=== PATIENT | male | born 2000 | race Caucasian/White ===

== ENCOUNTER 2021-06-04 14:56 | Emergency (ER) | payer OTHER, SELFPAY ==
[2021-06-04 15:10] VITALS: BP 136/77; PULSE 88; RESP 16; TEMP 37; O2SAT 99
--- NOTE | 2021-06-04 16:05 | ED.GIBLEED ---
HPI - GI Bleed General Chief complaint: GI Bleed Stated complaint: POOPING OUT BLOOD Time Seen by Provider: 06/04/21 15:50 Source: patient Mode of arrival: Ambulatory History of Present Illness HPI Narrative: 20M nonsmoker, previous heavy drinker presents with the chief complaint of relatively frequent episodes of painless bright red blood per rectum that have occurred over the past many months to years. He is here today because he the passage of a few small dark clots in his stool. On occasion he gets some mild cramping in his lower abdomen but not currently. He has had no fever or chills. He is not dizzy nor weak or lightheaded. He takes no blood thinners. He denies any previous evaluation for this. He does have a family history significant for Crohn's. Related Data Allergies Allergy/AdvReac Type Severity Reaction Status Date / Time No Known Drug Allergies Allergy Verified 06/04/21 15:12 Review of Systems Review of Systems Narrative: GENERAL: Denies chills, fatigue, malaise, fever, sweats. HEENT: Denies sinus pain, ear pain, sore throat, difficulty swallowing, dizziness. RESPIRATORY: Denies dyspnea, cough, wheezing, hemoptysis, sputum. CARDIOVASCULAR: Denies chest pain, palpitations, orthopnea, edema, GASTROINTESTINAL: See HPI : Denies dysuria, frequency, incontinence, hematuria, urinary retention. MUSCULOSKELETAL: denies weakness, joint pain, or bony pain SKIN: Denies rash, skin lesions, or other NEUROLOGIC: Denies weakness, headache, numbness, change in speech, confusion, seizures, incoordination. PSYCHIATRIC: No concerning psychosocial issues. 12 point review of systems is negative except for those stated above Patient History Social History Smoking Status: Never smoker Smoking Status: Never smoker Exam Narrative Exam Narrative: GENERAL: [20 year old patient appears stated age. Well-developed patient, in mild distress. HEAD: Atraumatic. Normocephalic. EYES: Pupils equal round and reactive. Extraocular motions intact. No scleral icterus. No injection or drainage. ENT: Nose without bleeding, purulent drainage. Throat without erythema, tonsillar hypertrophy or exudate. Airway patent. NECK: Trachea midline. Non tender CARDIOVASCULAR: Regular rate and rhythm without murmurs, gallops, or rubs. RESPIRATORY: Clear to auscultation. Breath sounds equal bilaterally. No wheezes, rales, or rhonchi. GASTROINTESTINAL: Abdomen soft, non-tender, nondistended. RECTAL: EXTREMITIES: No edema or joint tenderness. BACK: Nontender without deformity or crepitance. No flank tenderness. NEURO: AOx3. SKIN: No rash or erythema of visible areas Initial Vital Signs Initial Vital Signs: Vital Signs Temperature 98.6 F 06/04/21 15:10 Pulse Rate 88 06/04/21 15:10 Respiratory Rate 16 06/04/21 15:10 Blood Pressure 136/77 06/04/21 15:10 Pulse Oximetry 99 06/04/21 15:10 Course Orders Ordered: ED Orders 06/04/21 15:58 Complete Blood Count AUTO DIFF Stat Comprehensive Metabolic Panel Stat Prothrombin Time INR Stat Vital Signs Vital signs: Vital Signs - 8 hr 06/04/21 15:10 Temperature 98.6 F Pulse Rate 88 Respiratory Rate 16 Blood Pressure 136/77 Pulse Oximetry 99 MDM - GI Bleed Lab Data Result diagrams: 06/04/21 16:05 06/04/21 16:05 Labs: Lab Results 06/04/21 06/04/21 06/04/21 Range/Units 16:05 16:05 16:05 WBC 6.0 (4.5-11.0) X10^3/uL RBC 5.02 (4.5-5.9) X10^6/uL Hgb 15.2 (13.5-17.5) g/dL Hct 43.9 (41-53) % MCV 87.4 (80-100) fL MCH 30.2 (26-34) PG MCHC 34.5 (30-36) % RDW 12.3 (11.6-14.8) % Plt Count 161 (150-400) X10^3/uL Neut % (Auto) 60.4 (50-75) % Lymph % (Auto) 31.2 (25-40) % [place] % (Auto) 6.3 (3-14) % Eos % (Auto) 1.7 L (2-4) % Baso % (Auto) 0.4 (0-2) % Neut # (Auto) 3600 (5338-7106) /uL Lymph # (Auto) 1900 (3644-6388) /uL [place] # (Auto) 400 (0-900) /uL Eos # (Auto) 100 (0-450) /uL Baso # (Auto) 0 (0-100) /uL PT 12.6 (10.1-12.7) SECONDS INR 1.1 (0.9-1.3) Sodium 140 (137-145) mmol/L Potassium 4.7 (3.4-5.1) mmol/L Chloride 102 (98-107) mmol/L Carbon Dioxide 27 (22-32) mmol/L BUN 22 H (9-20) mg/dL Creatinine 0.96 (0.66-1.25) mg/dL Estimated GFR > 60.0 (>60) mL/min BUN/Creatinine Ratio 22.9 H (6-22) Glucose 72 (70-100) mg/dL Calcium 9.5 (8.4-10.2) mg/dL Total Bilirubin 0.5 (0.2-1.3) mg/dL AST 34 (17-59) IU/L ALT 27 (<50) IU/L Alkaline Phosphatase 68 (38-126) U/L Total Protein 7.7 (6.3-8.2) g/dL Albumin 4.7 (3.5-5.0) g/dL Globulin 3.0 (1.7-4.1) g/dL Albumin/Globulin Ratio 1.6 (1.0-2.8) Discharge Plan Departure Patient Disposition: Home Clinical Impression: Lower gastrointestinal hemorrhage Instructions: Gastrointestinal Bleeding Activity Restrictions/Additional Instructions: *You have been diagnosed with [lower gastrointestinal bleeding. No evidence of hemorrhoid, fissure and your labs are very reassuring today *What to do: *Please continue to take your regular medications as directed. [ ] New medication prescriptions sent to your pharmacy: [ ] [ ] New medication written as a paper prescription [x ] No new medications given *Please follow up with your primary care provider in 2-3 days, call for an appointment. Let them know you were seen in the Emergency Department and that we ask that you be seen in follow up. We will electronically transmit a record of today's note if your PCP is in our system *If you do not have a primary care provider please contact the [facility] Resource line at [phone]. They will ask some questions about your medical history and help get you set up with a doctor in the community. * additionally, I have given you contact information for [facility]. Please call for an appointment and let them know that you were seen in the emergency department and we would like you to be seen in follow-up. *Return to Emergency Department if you should have any new, worsening or concerning symptoms, such as [fever greater than 101 F, shaking chills, worsening pain, persistent vomiting or other bothersome symptoms] Referrals: Ish Kim MD [Physician] -
[2021-06-04 16:25] LABS: Add Manual Diff / Slide Review NO; Basophils Absolute Auto 0 /uL (0-100); Basophils Percent Auto 0.4 % (0-2); Eosinophils Absolute Auto 100 /uL (0-450); Eosinophils Percent Auto 1.7 % (2-4); Hematocrit 43.9 % (41-53); Hemoglobin 15.2 g/dL (13.5-17.5); Lymphocytes Absolute Auto 1900 /uL (1100-4500); Lymphocytes Percent Auto 31.2 % (25-40); Mean Corpuscular HGB Conc 34.5 % (30-36); Mean Corpuscular Hemoglobin 30.2 PG (26-34); Mean Corpuscular Volume 87.4 fL (80-100); Monocytes Absolute Auto 400 /uL (0-900); Monocytes Percent Auto 6.3 % (3-14); Neutrophils Absolute Auto 3600 /uL (1500-7000); Neutrophils Percent Auto 60.4 % (50-75); Platelet Count 161 X10^3/uL (150-400); Red Blood Cell Count 5.02 X10^6/uL (4.5-5.9); Red Cell Distribution Width 12.3 % (11.6-14.8)
[2021-06-04 16:31] LABS: INR 1.1 (0.9-1.3); Prothrombin Time 12.6 SECONDS (10.1-12.7)
[2021-06-04 16:35] LABS: Alanine Aminotransferase 27 IU/L (<50); Albumin 4.7 g/dL (3.5-5.0); Albumin Globulin Ratio 1.6 (1.0-2.8); Alkaline Phosphatase 68 U/L (38-126); Aspartate Aminotransferase 34 IU/L (17-59); BUN Creatinine Ratio 22.9 (6-22); Bilirubin Total 0.5 mg/dL (0.2-1.3); Blood Urea Nitrogen 22 mg/dL (9-20); Calcium 9.5 mg/dL (8.4-10.2); Carbon Dioxide 27 mmol/L (22-32); Chloride 102 mmol/L (98-107); Estimated Glomerular Filt Rate > 60.0 mL/min (>60); Glucose 72 mg/dL (70-100); HEMOLYSIS < 15 (0-50); Potassium 4.7 mmol/L (3.4-5.1); Sodium 140 mmol/L (137-145); Total Protein 7.7 g/dL (6.3-8.2)
== END 2021-06-04 17:53 | disposition home or self-care (01) ==
PROVIDERS: Emergency Provider Emergency Medicine
DX: K92.2 Gastrointestinal hemorrhage, unspecified (principal)
CPT/HCPCS: 36415; 80053; 85025; 85610; 99281; 99283

== ENCOUNTER 2021-08-03 23:40 | Emergency (ER) | payer OTHER, SELFPAY ==
[2021-08-03 23:45] VITALS: BP 130/62; PULSE 92; RESP 17; TEMP 36.8; O2SAT 98; BMI 25.8
--- NOTE | 2021-08-04 00:07 | ED.NAVMDI ---
HPI - Nausea/Vomiting/Diarrhea General Chief complaint: Nausea/Vomiting/Diarrhea Stated complaint: coughing/vomitting blood Time Seen by Provider: 08/04/21 00:07 Source: patient Mode of arrival: Ambulatory Limitations: no limitations History of Present Illness HPI Narrative: This is a 20-year-old male who comes to the emergency department after having episode of emesis followed by some bright red blood. Patient states he was in the shower he was feeling fine until all the sudden his stomach felt quite nauseated. He states he had ?a violent episode of vomiting that seemed to last for some time which was mostly all of the food he had eaten the last day. States at the tail end there seemed to be some bright red blood and that he sort of coughed out some blood afterwards. Patient states this was around 10:30 p.m.. 2 hours later he has not had any additional emesis, him at emesis or hemoptysis symptoms. He denies any syncope. He felt a little lightheaded while he was vomiting. Patient denies any abdominal pain. He had some abdominal pain that wrapped around while he was vomiting. It has resolved. He denies any diarrhea or constipation. He has had bright red blood from the rectum in the past and had a colonoscopy which only found an anal fissure. This was just in the last couple weeks. He denies any dysuria, urgency or frequency. He denies any epistaxis or other forms of bleeding. He has not been coughing or had any chest pain or shortness of breath and has not coughed up any blood before this episode. He has not had any clotting abnormalities or inappropriate bruising or bleeding. Denies other medical issues. No prior surgeries besides left knee surgery. No allergies to medications. Patient states he had several hard [place] is a earlier today. He did think he maybe ate something that might have caused him to be sick. Related Data Allergies Allergy/AdvReac Type Severity Reaction Status Date / Time No Known Drug Allergies Allergy Verified 06/04/21 15:12 Review of Systems Review of Systems ROS Unobtainable: All systems reviewed & are unremarkable except as noted in HPI and below Patient History Social History Smoking Status: Never smoker Smoking Status: Never smoker alcohol intake frequency: a few times a week Substance Use Type: does not use Exam Narrative Exam Narrative: GENERAL: Alert and oriented x three, thin well-appearing male in mild distress. HEENT: Head normocephalic, atraumatic, EOMI, no scleral icterus. Pupils reactive, face symmetric, moist mucous membranes NECK: Supple, full range of motion CARDIOVASCULAR: Regular rate and rhythm without murmurs, rubs or gallops. RESPIRATORY: Breath sounds equal bilaterally, no wheezes rales or rhonchi. No tachypnea or accessory muscle use. ABDOMEN: Soft, nontender. Normoactive bowel sounds all 4 quadrants. No guarding or rebound, rigidity, no mass, nondistended. : No CVA tenderness EXTREMITIES: Normal range of motion, no clubbing or edema. Neurovascularly intact NEUROLOGICAL: Cranial nerves II through XII grossly intact. Moving all extremities SKIN: Warm, dry, no petechiae, no rashes or lesions. Initial Vital Signs Initial Vital Signs: Vital Signs Temperature 98.3 F 08/03/21 23:45 Pulse Rate 92 H 08/03/21 23:45 Respiratory Rate 17 08/03/21 23:45 Blood Pressure 130/62 08/03/21 23:45 Pulse Oximetry 98 08/03/21 23:45 Course Orders Ordered: ED Orders 08/04/21 00:21 US abdomen limited Stat 08/04/21 00:31 Complete Blood Count AUTO DIFF Stat Comprehensive Metabolic Panel Stat Lipase Stat Partial Thromboplastin Time Stat Prothrombin Time INR Stat Discontinued Medications Ondansetron HCl (Ondansetron 4 Mg Odt) 4 mg SL NOW ONE Stop: 08/04/21 00:22 Last Admin: 08/04/21 00:24 Dose: 4 mg Documented by: ALRS Vital Signs Vital signs: Vital Signs - 8 hr 08/03/21 23:45 08/04/21 01:15 Temperature 98.3 F Pulse Rate 92 H 86 Respiratory Rate 17 15 Blood Pressure 130/62 117/67 Pulse Oximetry 98 99 MDM - Nausea/Vomiting/Diarrhea Lab Data Result diagrams: 08/04/21 00:31 08/04/21 00:31 Labs: Lab Results 08/04/21 08/04/21 08/04/21 Range/Units 00:31 00:31 00:31 WBC 6.1 (4.5-11.0) X10^3/uL RBC 4.71 (4.5-5.9) X10^6/uL Hgb 13.9 (13.5-17.5) g/dL Hct 40.3 L (41-53) % MCV 85.6 (80-100) fL MCH 29.5 (26-34) PG MCHC 34.5 (30-36) % RDW 12.1 (11.6-14.8) % Plt Count 158 (150-400) X10^3/uL Neut % (Auto) 61.3 (50-75) % Lymph % (Auto) 27.5 (25-40) % [place] % (Auto) 8.8 (3-14) % Eos % (Auto) 1.9 L (2-4) % Baso % (Auto) 0.5 (0-2) % Neut # (Auto) 3700 (3984-0828) /uL Lymph # (Auto) 1700 (2321-7250) /uL [place] # (Auto) 500 (0-900) /uL Eos # (Auto) 100 (0-450) /uL Baso # (Auto) 0 (0-100) /uL PT 12.0 (10.1-12.7) SECONDS INR 1.1 (0.9-1.3) APTT 18 L (26.4-36.2) SECONDS Sodium 139 (137-145) mmol/L Potassium 3.8 (3.4-5.1) mmol/L Chloride 103 (98-107) mmol/L Carbon Dioxide 26 (22-32) mmol/L BUN 16 (9-20) mg/dL Creatinine 0.82 (0.66-1.25) mg/dL Estimated GFR > 60.0 (>60) mL/min BUN/Creatinine Ratio 19.5 (6-22) Glucose 100 (70-100) mg/dL Calcium 9.3 (8.4-10.2) mg/dL Total Bilirubin 0.3 (0.2-1.3) mg/dL AST 27 (17-59) IU/L ALT 24 (<50) IU/L Alkaline Phosphatase 52 (38-126) U/L Total Protein 7.2 (6.3-8.2) g/dL Albumin 4.4 (3.5-5.0) g/dL Globulin 2.8 (1.7-4.1) g/dL Albumin/Globulin Ratio 1.6 (1.0-2.8) Lipase 77 (23-300) U/L Imaging Data US - abdomen: Radiologist's Impression: prelim-negative. Close Abdomen Ultrasound (Signed) Herbert Colmenares - 08/04/21 Launch?[address] [address] Ultrasound Report Signed Patient: Manuel Workman MR#: [id number] : 2000 Acct:[id number] Age/Sex: 20 / M Date of Service: 08/04/21 Loc: ED Accession Number: [id number] ?? Procedure: US abdomen limited Ordering Provider: Cookie Silva D.O. PROCEDURE:? US ABDOMEN LIMITED ? INDICATIONS:? vomiting ? TECHNIQUE:? Real-time scanning was performed of the abdominal and retroperitoneal organs, with image documentation.? ? COMPARISON:? None. ? FINDINGS:? ? Liver:? Liver is normal in size and homogeneous in echotexture.? ? Gallbladder:? There is no gallstone.? No gallbladder wall thickening or pericholecystic fluid.? No sonographic Jarrett sign. ? Biliary ducts:? Intrahepatic bile ducts are non-dilated.? Extrahepatic bile duct caliber measures 2.5 mm.? Normal is 6-7 mm or less in diameter, or 10 mm or less post-cholecystectomy.? ? Pancreas:? Visualized portions of the pancreas are sonographically normal.? ? ? Miscellaneous:? No free abdominal fluid.? ? ? IMPRESSION:? Unremarkable ultrasound examination of right upper quadrant abdomen.? ? ? Dictated by: Herbert Colmenares M.D. on 08/04/2021 at 1:27 ? ? Approved by: Herbert Colmenares M.D. on 08/04/2021 at 1:28?? MDM Narrative Medical decision making narrative: This is a 20-year-old male comes in with complaint of prolonged ?violent? vomiting that was followed by small amount of bright red blood which has not continued. Patient has not had any additional vomiting. He has had bright red blood from rectum and had a colonoscopy that showed anal fissure. He does not have any other inappropriate bleeding episodes. His hemoglobin is normal today but does appear different from May he was asked to follow with this. He has been asymptomatic since ultrasound does not show any acute changes labs are otherwise normal and patient and I discussed return precautions. Patient feels comfortable with this plan. He is aware that he should have an EGD if he has any additional episodes but should also return for repeat evaluation. Discharge Plan Departure Patient Disposition: Home Clinical Impression: Bloody emesis Activity Restrictions/Additional Instructions: Follow-up with your physician. Hemoglobin today is normal. You are not anemic but has decreased from May I suspect that your bleeding today was from vomiting forcefully. If you develop new chest pain, shortness of breath, abdominal pain, have recurrent episodes of vomiting with blood whether it is dark brown or bright red, fevers, lightheadedness or passing out please return.
--- NOTE | 2021-08-04 00:21 | DI.US.S_ITS ---
PROCEDURE: US ABDOMEN LIMITED INDICATIONS: vomiting TECHNIQUE: Real-time scanning was performed of the abdominal and retroperitoneal organs, with image documentation. COMPARISON: None. FINDINGS: Liver: Liver is normal in size and homogeneous in echotexture. Gallbladder: There is no gallstone. No gallbladder wall thickening or pericholecystic fluid. No sonographic Jarrett sign. Biliary ducts: Intrahepatic bile ducts are non-dilated. Extrahepatic bile duct caliber measures 2.5 mm. Normal is 6-7 mm or less in diameter, or 10 mm or less post-cholecystectomy. Pancreas: Visualized portions of the pancreas are sonographically normal. Miscellaneous: No free abdominal fluid. IMPRESSION: Unremarkable ultrasound examination of right upper quadrant abdomen. Dictated by: Herbert Colmenares M.D. on 08/04/2021 at 1:27 Approved by: Herbert Colmenares M.D. on 08/04/2021 at 1:28
[2021-08-04] MEDS: ONDANSETRON 4 MG ODT SL (00:24)
[2021-08-04 00:50] LABS: Alanine Aminotransferase 24 IU/L (<50); Albumin 4.4 g/dL (3.5-5.0); Albumin Globulin Ratio 1.6 (1.0-2.8); Alkaline Phosphatase 52 U/L (38-126); Aspartate Aminotransferase 27 IU/L (17-59); BUN Creatinine Ratio 19.5 (6-22); Bilirubin Total 0.3 mg/dL (0.2-1.3); Blood Urea Nitrogen 16 mg/dL (9-20); Calcium 9.3 mg/dL (8.4-10.2); Carbon Dioxide 26 mmol/L (22-32); Chloride 103 mmol/L (98-107); Estimated Glomerular Filt Rate > 60.0 mL/min (>60); Globulin 2.8 g/dL (1.7-4.1); Glucose 100 mg/dL (70-100); HEMOLYSIS < 15 (0-50); Lipase 77 U/L (23-300); Potassium 3.8 mmol/L (3.4-5.1); Sodium 139 mmol/L (137-145); Total Protein 7.2 g/dL (6.3-8.2)
[2021-08-04 00:54] LABS: INR 1.1 (0.9-1.3)
[2021-08-04 00:56] LABS: PTT Partial Thromboplastin Tim 18 SECONDS (26.4-36.2)
[2021-08-04 00:57] LABS: Add Manual Diff / Slide Review NO; Basophils Absolute Auto 0 /uL (0-100); Basophils Percent Auto 0.5 % (0-2); Eosinophils Absolute Auto 100 /uL (0-450); Eosinophils Percent Auto 1.9 % (2-4); Hematocrit 40.3 % (41-53); Hemoglobin 13.9 g/dL (13.5-17.5); Lymphocytes Absolute Auto 1700 /uL (1100-4500); Lymphocytes Percent Auto 27.5 % (25-40); Mean Corpuscular HGB Conc 34.5 % (30-36); Mean Corpuscular Hemoglobin 29.5 PG (26-34); Mean Corpuscular Volume 85.6 fL (80-100); Monocytes Absolute Auto 500 /uL (0-900); Monocytes Percent Auto 8.8 % (3-14); Neutrophils Absolute Auto 3700 /uL (1500-7000); Neutrophils Percent Auto 61.3 % (50-75); Platelet Count 158 X10^3/uL (150-400); Red Blood Cell Count 4.71 X10^6/uL (4.5-5.9); Red Cell Distribution Width 12.1 % (11.6-14.8); White Blood Cell Count 6.1 X10^3/uL (4.5-11.0)
[2021-08-04 01:15] VITALS: BP 117/67; PULSE 86; RESP 15; O2SAT 99
== END 2021-08-04 01:31 | disposition home or self-care (01) ==
PROVIDERS: Emergency Provider Emergency Medicine
DX: K92.0 Hematemesis (principal)
CPT/HCPCS: 36415; 76705; 80053; 83690; 85025; 85610; 85730; 99284